=== PATIENT | male | born 1965 | race Two or more races ===

== ENCOUNTER 2017-08-19 16:51 | Inpatient (IN) | payer OTHER, MEDICAID ==
[~2017-08-19] VITALS: Ht 182.9 cm; Wt 90.7 kg
[2017-08-19] MEDS ORDERED: cefTRIAXone 1GM/10ml IVPUSH 10 ML IV ONE (21:00)
[2017-08-19 23:32] LABS: Basophils # (auto) 0 uL; Eosinophils # (auto) 0.4 uL; Hemoglobin 11.6 g/dL (13.5-17.5); Lymphocytes # (auto) 0.9 uL; Mean Corpuscular Hemoglobin 26.8 pg (28.0-32.0); Monocytes # (auto) 0.5 uL; Red Blood Cells 4.34 10^6/uL (4.5-5.90)
[2017-08-19 23:36] LABS: Eosinophils % (auto) 7.8 % (0.0-7.0); Hematocrit 36.7 % (41.0-53.0); Lymphocytes % (auto) 18.8 % (10.0-50.0); Mean Corpuscular Hgb Conc. 31.7 g/dL (32.0-36.0); Mean Corpuscular Volume 84.6 fL (80.0-100.0); Monocytes % (auto) 9.6 % (0.0-12.0); Neutrophils % (auto) 62.8 % (37.0-80.0); Nucleated Red Blood Cells % 0.1 %; Platelet Count (auto) 120 10^3/uL (140-450); White Blood Cell 4.8 10^3/uL (4.4-10.8)
[2017-08-19 23:47] LABS: Red Cell Distribution Width 21.5 % (11.8-14.3)
[2017-08-19 23:48] LABS: Albumin 3.1 g/dL (3.4-5.0); BUN/Creatinine Ratio 4.4; Calcium 9.2 mg/dL (8.5-10.1); Potassium 3.2 mmol/L (3.5-5.1)
[2017-08-19 23:51] LABS: Bilirubin, Total 0.9 mg/dL (0.2-1.0)
[2017-08-20] MEDS ORDERED: POTASSIUM CHL 20 Meq TABLET PO ONE ×3 (01:00→08:00)
[2017-08-20] MEDS ORDERED: ONDANSETRON HCL 4 MG/2 ML VIAL IV PRN (02:15)
[2017-08-20] MEDS ORDERED: ACETAMINOPHEN 500 MG TAB PO PRN (02:15)
[2017-08-20 04:20] LABS: Basophils # (auto) 0.1 uL; Basophils % (auto) 1.5 % (0.0-2.0); Eosinophils # (auto) 0.4 uL; Eosinophils % (auto) 8.6 % (0.0-7.0); Hematocrit 39.2 % (41.0-53.0); Hemoglobin 12.3 g/dL (13.5-17.5); Lymphocytes % (auto) 21.2 % (10.0-50.0); Mean Corpuscular Hemoglobin 26.9 pg (28.0-32.0); Mean Corpuscular Hgb Conc. 31.3 g/dL (32.0-36.0); Mean Corpuscular Volume 86.1 fL (80.0-100.0); Monocytes # (auto) 0.6 uL; Monocytes % (auto) 12.2 % (0.0-12.0); Neutrophils # (auto) 2.6 uL; Neutrophils % (auto) 56.5 % (37.0-80.0); Nucleated Red Blood Cells % 0.3 %; Platelet Count (auto) 113 10^3/uL (140-450); Red Blood Cells 4.55 10^6/uL (4.5-5.90); White Blood Cell 4.5 10^3/uL (4.4-10.8)
[2017-08-20 04:28] LABS: Red Cell Distribution Width 21.6 % (11.8-14.3)
[2017-08-20 04:44] LABS: BUN/Creatinine Ratio 4.6; Calcium 8.7 mg/dL (8.5-10.1); Potassium 3.7 mmol/L (3.5-5.1)
[2017-08-20] MEDS ORDERED: PERMETHRIN 5 % TOPICAL CREAM 60GM TOP ONE (08:00)
[2017-08-20] MEDS ORDERED: ALBUTEROL SULF 2.5 MG/0.5ML(0.5%) NEB SOLN NEB PRN (08:45)
[2017-08-20] MEDS ORDERED: IPRATROPIUM BROM 0.5 MG/2.5ML INH SOL NEB PRN (08:45)
[2017-08-20] MEDS: AZITHROMYCIN 500MG/ 250ML 250 ML IV SCH (09:56)
[2017-08-20] MEDS: cefTRIAXone 1GM/10ml IVPUSH 10 ML IV SCH (09:56)
[2017-08-20] MEDS: PANTOPRAZOLE 40 MG TAB PO SCH (09:57)
[2017-08-20 11:54] VITALS: BP 120/85
[2017-08-20] MEDS: HYDROcodone-ACET 5/325MG TAB PO PRN ×2 (16:30→22:50)
[2017-08-20 18:20] VITALS: BP 148/109
[2017-08-20] MEDS ORDERED: HYDR-4683 PO (19:14)
[2017-08-20 22:00] VITALS: BP 163/106
[2017-08-21] VITALS (7 sets, daily range): BP systolic 141–161; BP diastolic 88–109
[2017-08-21] MEDS: HYDROcodone-ACET 5/325MG TAB PO PRN ×4 (02:58→20:27)
[2017-08-21 07:39] LABS: Basophils # (auto) 0 uL; Basophils % (auto) 0.6 % (0.0-2.0); Eosinophils # (auto) 0.1 uL; Eosinophils % (auto) 1.1 % (0.0-7.0); Hematocrit 39.8 % (41.0-53.0); Hemoglobin 12.7 g/dL (13.5-17.5); Lymphocytes # (auto) 1.1 uL; Lymphocytes % (auto) 18.8 % (10.0-50.0); Mean Corpuscular Hemoglobin 27.2 pg (28.0-32.0); Mean Corpuscular Hgb Conc. 31.9 g/dL (32.0-36.0); Mean Corpuscular Volume 85.3 fL (80.0-100.0); Monocytes # (auto) 0.6 uL; Monocytes % (auto) 10.7 % (0.0-12.0); Neutrophils % (auto) 68.8 % (37.0-80.0); Nucleated Red Blood Cells % 0.7 %; Platelet Count (auto) 122 10^3/uL (140-450); Red Blood Cells 4.67 10^6/uL (4.5-5.90); White Blood Cell 5.8 10^3/uL (4.4-10.8)
[2017-08-21 07:42] LABS: Red Cell Distribution Width 22.1 % (11.8-14.3)
[2017-08-21 07:46] LABS: BUN/Creatinine Ratio 5.2; Calcium 9.1 mg/dL (8.5-10.1); Magnesium 2.5 mg/dL (1.6-2.6); Potassium 5.2 mmol/L (3.5-5.1)
[2017-08-21] MEDS: PANTOPRAZOLE 40 MG TAB PO SCH ×3 (10:00→10:28)
[2017-08-21] MEDS: cefTRIAXone 1GM/10ml IVPUSH 10 ML IV SCH (10:13)
[2017-08-21] MEDS: AZITHROMYCIN 500MG/ 250ML 250 ML IV SCH (10:14)
[2017-08-21] MEDS ORDERED: cloNIDine HCL 0.1 MG TAB PO PRN (10:15)
[2017-08-21] MEDS ORDERED: HYDR-4683 PO (20:32)
[2017-08-21] MEDS ORDERED: ALPR2TAB2 PO (20:32)
[2017-08-21] MEDS ORDERED: HYDR-3682 PO (20:32)
[2017-08-21] MEDS ORDERED: AMLO5TAB2 PO (20:32)
[2017-08-21] MEDS ORDERED: HYDR-531 PO (20:32)
[2017-08-21] MEDS ORDERED: hydrOXYzine 25 MG TAB or CAP PO PRN (21:30)
[2017-08-21] MEDS ORDERED: amLODIPine BESYLATE 5 MG TAB PO ONE (21:30)
[2017-08-21] MEDS: ALPRAZolam 0.5 MG TAB PO SCH (21:45)
[2017-08-22 05:47] VITALS: BP 135/94
[2017-08-22 05:57] LABS: BUN/Creatinine Ratio 4.8; Calcium 8.9 mg/dL (8.5-10.1); Potassium 4.1 mmol/L (3.5-5.1)
[2017-08-22 08:28] VITALS: BP 148/100
[2017-08-22] MEDS ORDERED: amLODIPine BESYLATE 5 MG TAB PO SCH (10:00)
[2017-08-22] MEDS: cefTRIAXone 1GM/10ml IVPUSH 10 ML IV SCH (10:16)
[2017-08-22] MEDS: AZITHROMYCIN 500MG/ 250ML 250 ML IV SCH (10:16)
[2017-08-22] MEDS: ALPRAZolam 0.5 MG TAB PO SCH (10:17)
[2017-08-22] MEDS: PANTOPRAZOLE 40 MG TAB PO SCH (10:17)
[2017-08-22 11:45] VITALS: BP 119/79
[2017-08-22 12:56] VITALS: BP 119/79
[2017-08-23] MEDS ORDERED: AZITHROMYCIN 250 MG TAB PO SCH (10:00)
== END 2017-08-22 16:45 | disposition home or self-care (01) | DRG 193 ==
LOC: ER 17:06 → OVERFLOW 17:07 → CENTRAL 08-20 16:06
PROVIDERS: ADMIT Nurse Practitioner Family; ATTEND Family Medicine
PROC: 5A1D70Z Performance of Urinary Filtration, Intermittent, Less than 6 Hours Per Day (ICD-10-PCS; principal; 2017-08-21)
DX: J18.9 Pneumonia, unspecified organism (principal); N18.6 End stage renal disease; I12.0 Hypertensive chronic kidney disease with stage 5 chronic kidney disease or end stage renal disease; E87.5 Hyperkalemia; E87.1 Hypo-osmolality and hyponatremia; B86 Scabies; D63.8 Anemia in other chronic diseases classified elsewhere; E21.3 Hyperparathyroidism, unspecified; W57.XXXA Bitten or stung by nonvenomous insect and other nonvenomous arthropods, initial encounter; S40.862A Insect bite (nonvenomous) of left upper arm, initial encounter; S40.861A Insect bite (nonvenomous) of right upper arm, initial encounter; E87.6 Hypokalemia; Z82.49 Family history of ischemic heart disease and other diseases of the circulatory system; Z83.3 Family history of diabetes mellitus; Z99.2 Dependence on renal dialysis; Y93.89 Activity, other specified; Y92.89 Other specified places as the place of occurrence of the external cause; Y99.8 Other external cause status
CPT/HCPCS: 36415; 70450; 71046; 80048; 80053; 83605; 83735; 85025; 87040; 87081; 90935; 96374; J1642

== ENCOUNTER 2019-03-24 14:16 | Inpatient (IN) | payer MEDICARE, MEDICAID ==
[~2019-03-24] VITALS: Ht 175.3 cm; Wt 90.7 kg
[~2019-03-24 14:16] MED LIST: ALBU1AER4 IN; ALPR2TAB2 PO; AMLO5TAB15 PO; CLOP75TA28 PO; CYCL1TAB18 PO; FAM20T PO; FLUT250M2 INH; GABA300C10 PO; HYDR-3682 PO; HYDR-531 PO; METF-371 PO
[2019-03-24 14:50] LABS: Basophils # (auto) 0.1 uL; Basophils % (auto) 1.3 % (0.0-2.0); Eosinophils # (auto) 0.4 uL; Eosinophils % (auto) 7.2 % (0.0-7.0); Hematocrit 31.3 % (41.0-53.0); Hemoglobin 10.3 g/dL (13.5-17.5); Lymphocytes # (auto) 1.1 uL; Lymphocytes % (auto) 18.1 % (10.0-50.0); Mean Corpuscular Hemoglobin 28.8 pg (28.0-32.0); Mean Corpuscular Hgb Conc. 32.9 g/dL (32.0-36.0); Mean Corpuscular Volume 87.6 fL (80.0-100.0); Monocytes # (auto) 0.8 uL; Neutrophils # (auto) 3.6 uL; Neutrophils % (auto) 60.4 % (37.0-80.0); Nucleated Red Blood Cells % 0.1 %; Platelet Count (auto) 351 10^3/uL (140-450); Red Blood Cells 3.58 10^6/uL (4.5-5.90); Red Cell Distribution Width 15.7 % (11.8-14.3)
[2019-03-24 15:06] LABS: Albumin 2.9 g/dL (3.4-5.0); Calcium 8.6 mg/dL (8.5-10.1); Magnesium 2.5 mg/dL (1.6-2.6)
[2019-03-24 15:11] LABS: BUN/Creatinine Ratio 3.6; Bilirubin, Total 0.8 mg/dL (0.2-1.0); Total Protein 9.4 g/dL (6.4-8.2)
[2019-03-24] MEDS ORDERED: ENOXAPARIN SOD 100 MG/1 ML SYRINGE SC ONE (15:45)
[2019-03-24] MEDS ORDERED: ASPirin 81 mg TAB PO ONE (15:45)
[2019-03-24] MEDS ORDERED: hydrALAZINE HCL 20 MG/ML VL IV PRN (17:00)
[2019-03-24] MEDS ORDERED: HALOPERIDOL LACTATE 5 MG/ML INJ VIAL IM PRN (17:00)
[2019-03-24] MEDS ORDERED: NITROGLYCERIN 0.4 MG SL TAB SL PRN (17:00)
[2019-03-24] MEDS ORDERED: risperiDONE 1 MG TAB PO ONE (17:00)
[2019-03-24] MEDS ORDERED: MORPHINE SULF INJ 2 MG/ML SYRINGE 1ML IV PRN (17:00)
[2019-03-24] MEDS ORDERED: DEXTROSE (50%) 50ML SYRG IV PRN (17:15)
[2019-03-24] MEDS ORDERED: CLOPIDOGREL BISULFATE 75 MG TAB PO ONE (19:00)
[2019-03-24] MEDS ORDERED: NITROGLYCERIN 50MG/250ML 250 ML IV SCH (19:00)
[2019-03-24] MEDS ORDERED: SODIUM CHLORIDE 0.9% 1,000 ML IV ONE (19:15)
[2019-03-24] MEDS ORDERED: NOREPINEPHRINE 8 MG/250ML KIT 250 ML IV SCH (19:15)
[2019-03-24] MEDS ORDERED: NOREPINEPHRINE 8 MG/250ML KIT 250 ML IV ONE (19:19)
[2019-03-24] MEDS ORDERED: ANGIOMAX 250 MG VIAL IV ONE (19:39)
[2019-03-24] MEDS ORDERED: SODIUM CHL 0.9% 50 ML ONE (19:40)
[2019-03-24] MEDS ORDERED: fentaNYL CITRATE 100 MCG/2 ML VL ONE (19:40)
[2019-03-24] MEDS ORDERED: LIDOCAINE 2%HCL (LOCAL ANESTH.) INJ 20ML MDV ONE (19:40)
[2019-03-24] MEDS ORDERED: MIDAZOLAM HCL 1MG/1ML-2 ML VIAL ONE (19:40)
[2019-03-24] MEDS ORDERED: IODIXANOL 320MG/ML 100ML BTL IV ONE (19:40)
[2019-03-24 19:50] VITALS: BP 87/57
[2019-03-24] MEDS ORDERED: diphenhdrAMINE HCL 50 MG/1 ML VL ONE (20:05)
[2019-03-24] MEDS ORDERED: ATROPINE SULFATE 1 MG/1 ML VIAL ONE ×2 (21:18)
[2019-03-24] MEDS ORDERED: EPINEPHrine HCL 1 MG/10 ML SYRG ONE ×2 (21:19→22:45)
[2019-03-24] MEDS ORDERED: ONDANSETRON HCL 4 MG/2 ML VIAL ONE (21:21)
[2019-03-24] MEDS ORDERED: DOBUTamine 1000MCG/ML 250 ML IV ONE (21:35)
[2019-03-24] MEDS ORDERED: ATORVASTATIN 20 MG TAB PO SCH (22:00)
[2019-03-24] MEDS ORDERED: FAMOTIDINE 20 MG TAB PO SCH (22:00)
[2019-03-24] MEDS ORDERED: InsuLIN REG 1unit/0.01ml Soln (100units/ml) SC SCH (22:00)
[2019-03-24] MEDS ORDERED: ACCU-CHEK COMFORT CURVE STRIP VI SCH (22:00)
[2019-03-24] MEDS ORDERED: GABAPENTIN 300 MG CAP PO SCH (22:00)
--- NOTE | 2019-03-24 22:12 | NUR ---
2212 CODE ASSIST CALLED DUE TO PT UNRESPONSIVE WITH AGONAL RESPIRATIONS WHILE BEING MANUALLY BAGGED WITH AMBU AND MASK. PT LOST PULSES, CODE BLUE CALLED AT 2214. CPR INITIATED. 2226 PT INTUBATED BY MYSELF ON FIRST ATTEMPT, AFTER 2 ATTEMPTS BY Deng JASON WITH 8.0@24CM WITH GOOD COLOR CHANGE ON ETCO2 DETECTOR. PT BEING MANUALLY VENTILATED WITH AMBU BAG FOR DURATION OF CODES. SEE CODE SHEET.
--- NOTE | 2019-03-24 22:13 | NUR ---
PATIENT WAS BROUGHT FROM [facility] VIA BED TO [facility] RM 266 ACCOMPANIED BY [employer]ICE GRADER RN AND TECH. PT BEING NOTED OF GASPING FOR AIR, LARGE PUPILS AND NOT RESPONDING VERBALLY, CAROTID PULSE NOT PALPABLE. PT. WAS ON DOBUTAMINE GTT AT 5 MCG AND LEVOPHED AT 30 MCG. CODE ASSIST, FOLLOWED BY NATTY MURPHY WERE CALLED AND CARDIO PULMONARY RESUSCITATION STARTED IMMEDIATELY. PLEASE REFER TO NATTY MURPHY RECORD. PT. WAS INTUBATED, MULTIPLE ROUNDS OF CARDIAC DRUGS, VASOACTIVE MEDS, CARDDIOVERSION, DEFIBRILATION USED WITHOUT LASTING RESULTS AND THE EFFORTS WERE STOPPED AFTER ONE HOUR , WHEN ASYSTOLE WAS CONFIRMED. PT'S FAMILY (SON AND SISTER WERE NOTIFIED) SON ARRIVED AT THE BEDSIDE; THE SISTER LIVES AT [address] HRS [address]ING DISTANCE AND WILL [place] IN AM TO INFORM OF HER DECISIONS. AWAITING FOR THE LINUX SUPPORT ENGINEER TO RETURN CALL.
[2019-03-24] MEDS ORDERED: ETOMIDATE (2MG/ML) 20ML VIAL IV ONE (22:19)
[2019-03-24] MEDS ORDERED: ROCURONIUM 10MG/ML 10ML VIAL IV ONE (22:19)
[2019-03-24] MEDS ORDERED: SUCCINYLCHOLINE CHLORIDE 20 MG/ML 10ML VIAL IV ONE (22:21)
[2019-03-24] MEDS ORDERED: EPINEPHrine HCL 250 ML IV ONE (22:34)
[2019-03-24] MEDS ORDERED: CLOPIDOGREL 300 MG TAB PO ONE (23:00)
--- NOTE | 2019-03-24 23:01 | NUR ---
DURING PROCEDURE PT LOST BP. CPR STARTED. MD SWEET GAVE ORDERS FOR EPI AND BICARB. MEDICATIONS GIVEN ORDERED BY PEG BREWER. Addendum: 03/24/19 at 2310 by JUNAID JAIME RN RN DURING PROCEDURE PT LOST BP. CPR STARTED. MD SWEET GAVE ORDERS FOR EPI AND BICARB SEE [facility] FOR ADMINISTRATION DOCUMENTATION. MEDICATIONS GIVEN ORDERED BY PEG BREWER. ROSC OBTAINED. MD SWEET VERIFIED. SEE [facility] DOCUMENTATION.
[2019-03-24] MEDS ORDERED: ENOXAPARIN SOD 80 MG/0.8ML SYRINGE SC ONE (23:10)
--- NOTE | 2019-03-25 03:57 | NUR ---
THE PRODUCT CRAFTSMAN HAS RELEASED THE BODY PER PHONE CONVERSATION WITH IRWIN MILNER. POSTMORTEM CARE IN CAN BE STARTED.
--- NOTE | 2019-03-25 04:28 | NUR ---
POSTMORTEM CARE COMPLETED, THE BODY WILL BE TRANSFERRED TO [facility].
[2019-03-25] MEDS ORDERED: SODIUM BICARBONATE 8.4% INJ 50ML SYRINGE IV ONE (05:29)
[2019-03-25] MEDS ORDERED: CALCIUM CHLOR(10%) 100MG/ML 10ML SYRINGE IV ONE (05:29)
[2019-03-25] MEDS ORDERED: DOPamine 1600mCg/ml 400MG/250ml NSorD5 KIT/BAG IV ONE (05:29)
[2019-03-25] MEDS ORDERED: AMIODARONE HCL (50 MG/ ML) 3 ML VIAL IV ONE (05:29)
[2019-03-25] MEDS ORDERED: EPINEPHrine HCL 1 MG/10 ML SYRG IV ONE (05:29)
[2019-03-25] MEDS ORDERED: ATROPINE SULF 1 MG/10ml SYR IV ONE (05:29)
[2019-03-25] MEDS ORDERED: ENOXAPARIN SOD 80 MG/0.8ML SYRINGE SC SCH (10:00)
[2019-03-25] MEDS ORDERED: LISINOPRIL 10 MG TAB PO SCH (10:00)
[2019-03-25] MEDS ORDERED: risperiDONE 1 MG TAB PO SCH (10:00)
[2019-03-25] MEDS ORDERED: amLODIPine BESYLATE 5 MG TAB PO SCH (10:00)
[2019-03-25] MEDS ORDERED: ASPirin-EC 81 mg tab PO SCH (10:00)
[2019-03-25] MEDS ORDERED: CLOPIDOGREL BISULFATE 75 MG TAB PO SCH ×2 (10:00)
== END 2019-03-25 05:30 | disposition expired | DRG 246 ==
LOC: EDBD 14:16 → ER 14:21 → TELE 14:22 → TELE-EAST 18:18 → DOU IN ICU 20:04
PROVIDERS: ADMIT Nurse Practitioner Acute Care; ATTEND Nurse Practitioner Acute Care
PROC: 027034Z Dilation of Coronary Artery, One Artery with Drug-eluting Intraluminal Device, Percutaneous Approach (ICD-10-PCS; principal; 2019-03-24)
PROC: 4A023N7 Measurement of Cardiac Sampling and Pressure, Left Heart, Percutaneous Approach (ICD-10-PCS; 2019-03-24)
PROC: B2111ZZ Fluoroscopy of Multiple Coronary Arteries using Low Osmolar Contrast (ICD-10-PCS; 2019-03-24)
PROC: 5A12012 Performance of Cardiac Output, Single, Manual (ICD-10-PCS; 2019-03-24)
DX: T82.867A Thrombosis due to cardiac prosthetic devices, implants and grafts, initial encounter (principal); N18.6 End stage renal disease; I21.4 Non-ST elevation (NSTEMI) myocardial infarction; I13.2 Hypertensive heart and chronic kidney disease with heart failure and with stage 5 chronic kidney disease, or end stage renal disease; E44.0 Moderate protein-calorie malnutrition; E11.22 Type 2 diabetes mellitus with diabetic chronic kidney disease; F31.9 Bipolar disorder, unspecified; D63.8 Anemia in other chronic diseases classified elsewhere; I50.9 Heart failure, unspecified; E11.42 Type 2 diabetes mellitus with diabetic polyneuropathy; Y83.1 Surgical operation with implant of artificial internal device as the cause of abnormal reaction of the patient, or of later complication, without mention of misadventure at the time of the procedure; E78.5 Hyperlipidemia, unspecified; F22 Delusional disorders; I46.9 Cardiac arrest, cause unspecified; I25.10 Atherosclerotic heart disease of native coronary artery without angina pectoris; I25.2 Old myocardial infarction; F43.10 Post-traumatic stress disorder, unspecified; Z79.02 Long term (current) use of antithrombotics/antiplatelets; Y92.89 Other specified places as the place of occurrence of the external cause; Z79.51 Long term (current) use of inhaled steroids; Z79.84 Long term (current) use of oral hypoglycemic drugs; Z79.899 Other long term (current) drug therapy; Z86.73 Personal history of transient ischemic attack (TIA), and cerebral infarction without residual deficits; Z99.2 Dependence on renal dialysis; Z68.29 Body mass index [BMI] 29.0-29.9, adult
CPT/HCPCS: 36415; 71045; 80053; 82962; 83735; 83880; 84484; 85025; 86141; 92928; 92950; 93005; 93458; 96372; A4565; G0378; J0171; J0330; J0461; J2250; J2405; Q9967